=== PATIENT | female | born 1980 | race Caucasian/White ===

== ENCOUNTER 2016-11-27 20:00 | Emergency (ER) | payer SELFPAY ==
[2016-11-27 20:12] VITALS: BP 254/170; PULSE 107; TEMP 98.5; BMI 28.3
[2016-11-27] MEDS ORDERED: DIAZEPAM 5 MG TAB PO ONE (20:38)
[2016-11-27] MEDS ORDERED: HYDROCODONE 5 MG/ACETAMIN 325 MG TAB PO ONE (20:38)
[2016-11-27 21:02] LABS: AUTOMATED BASOPHIL 0.6 % (0-2); AUTOMATED EOSINOPHIL 1.2 % (0-5); AUTOMATED LYMPH 19.5 % (17-44); AUTOMATED MONOCYTE 8.5 % (3-10); AUTOMATED NEUTROPHIL 70.2 % (45-76); MPV 7.4 fL (7.4-10.4)
[2016-11-27 21:17] LABS: BLOOD UREA NITROGEN 7 MG/DL (7-17); CALCIUM 9.1 MG/DL (8.4-10.2); CALCULATED OSMOLALITY 264 MOs/Kg (270-290); CHLORIDE 103 mEq/L (98-107); GLUCOSE 94 MG/DL (70-99); SODIUM LEVEL 138 mEq/L (137-146); TOTAL PROTEIN 7.6 G/DL (6.3-8.2)
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
[2016-11-27 21:34] LABS: ALL NEG? NO
[2016-11-27 21:39] LABS: LEUKOCYTES/URINE NEG (NEGATIVE); NITRITE/URINE NEG (NEGATIVE); RBC/URINE 0-2 (0-5); URINE OCCULT BLOOD NEG (NEG/TRACE); WBC/URINE 0-2 (0-5)
[2016-11-27 21:42] LABS: MDMA* NEG (NEGATIVE); METHAMPHETAMINES NEG (NEGATIVE); OXYCODONE *POSITIVE* (NEGATIVE)
== END 2016-11-27 22:10 | disposition left against medical advice (07) ==
LOC: ED 20:00
DX: R10.9 Unspecified abdominal pain (principal); F41.9 Anxiety disorder, unspecified
CPT/HCPCS: 36415; 80053; 80307; 81001; 81025; 85025; 99283; J3490